=== PATIENT | female | born 1990 | race Caucasian/White ===

== ENCOUNTER 2019-04-19 09:56 | Observation (INO) | payer OTHER ==
[~2019-04-19] VITALS: Ht 152.4 cm; Wt 65.3 kg
[2019-04-19] MEDS ORDERED: PREN-55 MT (10:40)
[2019-04-19] MEDS ORDERED: LACTATED RINGERS 1,000 ML IV SCH (11:00)
[2019-04-19 12:23] LABS: CLARITY URINE CLOUDY (CLEAR); COLOR URINE YELLOW (YELLOW); KETONES URINE NEGATIVE (NEGATIVE); LEUKOCYTE ESTERASE URINE NEGATIVE (NEGATIVE); NITRITE URINE NEGATIVE (NEGATIVE); OCCULT BLOOD URINE NEGATIVE (NEGATIVE); PROTEIN URINE NEGATIVE (NEGATIVE); SPECIFIC GRAVITY URINE 1.017 (1.005-1.030)
== END 2019-04-19 14:00 | disposition home or self-care (01) ==
LOC: 8 EST LDRP 09:56
PROVIDERS: ADMIT Obstetrics & Gynecology; ATTEND Obstetrics & Gynecology
DX: O9A.212 Injury, poisoning and certain other consequences of external causes complicating pregnancy, second trimester (principal); O26.892 Other specified pregnancy related conditions, second trimester; R10.9 Unspecified abdominal pain; M54.9 Dorsalgia, unspecified; Z3A.22 22 weeks gestation of pregnancy
CPT/HCPCS: 76805; 81003; 99281; G0378; 96360; 96361